=== PATIENT | female | born 1965 | race African-American/Black ===

== ENCOUNTER 2017-08-08 23:44 | Emergency (ER) | payer OTHER ==
[~2017-08-08] VITALS: Ht 165.1 cm; Wt 68.2 kg
[2017-08-08 23:57] VITALS: BP 110/66
[2017-08-09] MEDS ORDERED: BACITRACIN 0.9 GM PACKET OINTMENT TP ONE (00:30)
[2017-08-09] MEDS ORDERED: ALPRAZolam 0.25 MG TABLET PO ONE (00:30)
== END 2017-08-09 02:15 | disposition left against medical advice (07) ==
LOC: EDBD 23:49 → EMS 23:49
DX: S30.0XXA Contusion of lower back and pelvis, initial encounter (principal); F41.9 Anxiety disorder, unspecified; V43.92XA Unspecified car occupant injured in collision with other type car in traffic accident, initial encounter; Y93.89 Activity, other specified; Y92.410 Unspecified street and highway as the place of occurrence of the external cause; Y99.8 Other external cause status
CPT/HCPCS: 99284

== ENCOUNTER 2017-08-25 02:19 | Emergency (ER) | payer SELFPAY ==
[~2017-08-25] VITALS: Ht 170.2 cm; Wt 75.0 kg
[2017-08-25 02:28] VITALS: BP 123/85
== END 2017-08-25 03:31 | disposition left against medical advice (07) ==
LOC: EMS 02:22
DX: M25.551 Pain in right hip (principal); Z53.21 Procedure and treatment not carried out due to patient leaving prior to being seen by health care provider

== ENCOUNTER 2018-06-23 15:14 | Emergency (ER) | payer SELFPAY ==
[~2018-06-23] VITALS: Ht 175.3 cm; Wt 93.6 kg
[2018-06-23 15:25] VITALS: BP 112/67
== END 2018-06-23 16:48 | disposition left against medical advice (07) ==
LOC: EMS 15:14
DX: M54.9 Dorsalgia, unspecified (principal); Z76.0 Encounter for issue of repeat prescription; Z53.21 Procedure and treatment not carried out due to patient leaving prior to being seen by health care provider

== ENCOUNTER 2019-02-23 18:45 | Emergency (ER) | payer OTHER ==
[~2019-02-23] VITALS: Ht 172.7 cm; Wt 88.2 kg
[2019-02-23 19:40] VITALS: BP 157/83
== END 2019-02-23 20:00 | disposition home or self-care (01) ==
LOC: EMS 18:46
DX: F41.9 Anxiety disorder, unspecified (principal); F17.210 Nicotine dependence, cigarettes, uncomplicated